=== PATIENT | male | born 1975 | race African-American/Black ===

== ENCOUNTER 2022-03-15 13:04 | Emergency (ER) | payer OTHER ==
[~2022-03-15 13:04] MED LIST: ANUSOL-HC25 MG RC; ATORVASTATIN CA20 M1 PO; BACTRIM DS 8001 TA1 PO; GLUCOPHAGE1000 MG PO; LISINOPRIL10 MG PO; METFORMIN1000 MG PO; PRINIVIL10 MG PO
[2022-03-15] MEDS ORDERED: PIOGLITAZONE HC30 MG PO (14:51)
[2022-03-15] MEDS ORDERED: JANUVIA100 MG PO (14:52)
[2022-03-15] MEDS ORDERED: AMLODIPINE BESY10 MG PO (14:52)
[2022-03-15] MEDS ORDERED: LANSOPRAZOLE30 MG PO (14:52)
[2022-03-15] MEDS ORDERED: TADALAFIL5 MG PO (14:53)
[2022-03-15] MEDS ORDERED: CYCLOBENZAPRINE5 M3 PO (16:20)
[2022-03-15] MEDS ORDERED: Motrin,Rufen800 MG PO (16:20)
== END 2022-03-15 16:46 | disposition home or self-care (01) ==
LOC: ED 13:04
DX: S20.211A Contusion of right front wall of thorax, initial encounter (principal); Z79.899 Other long term (current) drug therapy; V89.2XXA Person injured in unspecified motor-vehicle accident, traffic, initial encounter; Y93.89 Activity, other specified; Y92.89 Other specified places as the place of occurrence of the external cause; Y99.8 Other external cause status

== ENCOUNTER → 2023-04-21 | Outpatient (CLI) | payer BC ==
[~2023-04-21] MED LIST changes: +AMLODIPINE BESY10 MG PO; +CYCLOBENZAPRINE5 M3 PO; +JANUVIA100 MG PO; +LANSOPRAZOLE30 MG PO; +Motrin,Rufen800 MG PO; +PIOGLITAZONE HC30 MG PO; +TADALAFIL5 MG PO
== END | disposition home or self-care (01) ==
LOC: US 00:03
PROVIDERS: ATTEND Internal Medicine
DX: K74.60 Unspecified cirrhosis of liver (principal); K82.9 Disease of gallbladder, unspecified